=== PATIENT | female | born 1960 | race Caucasian/White ===

== ENCOUNTER 2018-08-24 08:19 | Outpatient (CLI) | payer OTHER ==
--- NOTE | 2018-08-24 10:58 | CT ---
CT HEART WITHOUT CONTRAST CORONARY CALCIUM SCORING EXAM: Date: 08/24/18 CLINICAL HISTORY: 57-year-old female with history of hypercholesterolemia and precordial chest pain. FINDINGS: There is atherosclerosis of the coronary arteries. On the basis of Agatston scoring, score of the rig ht coronary artery is 79, score of left anterior descending artery is 105, and score of circumflex ar cortes is 76. Total calcium score of 260 is present. For female patient of this age, this places the pa tient at a risk stratus greater than 90%. Patient's score confirms definite, at least moderate athero sclerotic plaque, with mild coronary artery disease highly likely, with significant narrowing to poss ible. IMPRESSION: Total calcium score 260. The patient's risk for age is greater than 90%. POS: OFF
== END 2018-08-24 08:20 | disposition home or self-care (01) ==
LOC: BICCT 08:19
PROVIDERS: ATTEND Internal Medicine Interventional Cardiology
DX: R07.2 Precordial pain (principal)
CPT/HCPCS: 75571